=== PATIENT | male | born 1965 | race Caucasian/White ===

== ENCOUNTER 2020-07-15 21:44 | Inpatient (IN) | payer BC, SELFPAY ==
[2020-07-15] MEDS ORDERED: NA CHLORIDE 0.9% 250 ML ONE (22:34)
[2020-07-15] MEDS ORDERED: AZITHROMYCIN 500 MG INJ IVPB ONE (22:34)
[2020-07-15] MEDS ORDERED: CEFTRIAXONE/SWI 1gm 1 GM/10 ML SYR ONE (22:35)
[2020-07-15] MEDS ORDERED: NA CHLORIDE 0.9% 1,000 ML ONE (22:35)
[2020-07-15 23:11] LABS: Basophils % 0.5 % (0-1.3); Hematocrit 40.9 % (39.6-49.0); Lymphocytes % 12.7 % (15.3-44.8); RBC Red Blood Cell Count 4.52 M/uL (4.33-5.43)
[2020-07-15] MEDS ORDERED: ENOXAPARIN 80 MG/0.8 ML SQ ONE (23:13)
[2020-07-15] MEDS ORDERED: METHYLPREDNISOLONE 125 MG INJ ONE (23:13)
[2020-07-15 23:15] LABS: Protime INR 1.23
[2020-07-15 23:25] LABS: ALT/SGPT 32 U/L (12-78); AST/SGOT 45 U/L (15-37); Alkaline Phosphatase 65 U/L (45-117); Amylase 33 U/L (25-115); BUN Blood Urea Nitrogen 14 mg/dL (7-18); Bicarbonate 25 mmol/L (21-32); Bilirubin Direct 0.2 mg/dL (0-0.2); Bilirubin Total 0.6 mg/dL (0.2-1.0); CKMB Creatine Kinase MB 4.2 ng/mL (0.3-3.6); Creatine Phosphokinase 588 U/L (39-308); Glucose Level 130 mg/dL (74-106); Lipase 93 U/L (73-393); Potassium 3.8 mmol/L (3.5-5.1); Protein, Total 7.9 g/dL (6.4-8.2); Sodium Level 137 mmol/L (136-145); Troponin (Emerg Dept Use Only) < 0.02 ng/mL (0.0-0.045)
--- NOTE | 2020-07-15 23:59 | ER ---
Nurse's Notes [facility] Name: Daren Ye Age: 55 yrs Sex: Male : 1965 Arrival Date: 07/15/2020 Time: 21:47 Bed 19 Private MD: Zahida Blanca C Diagnosis: Pneumonia due to other specified infectious organisms Presentation: 07/15 20:51 Chief complaint: Patient states: Feel sick x 1 week, reports productive cough and a ca1 little bit of diarrhea. Denies fever. Denies SOB. Coronavirus screen: Client denies travel out of the [place] in the last 14 days. cough unrelated to allergies, diarrhea, Client presents with at least one sign or symptom that may indicate coronavirus-19. Standard/surgical mask placed on the client. Provider contacted for isolation considerations. Ebola Screen: Patient negative for fever greater than or equal to 101.5 degrees Fahrenheit, and additional compatible Ebola Virus Disease symptoms Patient denies exposure to infectious person. Patient denies travel to an Ebola-affected area in the 21 days before illness onset. No symptoms or risks identified at this time. Initial Sepsis Screen: Does the patient meet any 2 criteria? RR > 20 per min. HR > 90 bpm. Yes Does the patient have a suspected source of infection? Yes: Productive cough/pneumonia. Risk Assessment: Do you want to hurt yourself or someone else? Patient reports no desire to harm self or others. Onset of symptoms was July 15, 2020. 20:51 Acuity: LILIANE 2 ca1 20:51 Method Of Arrival: Ambulatory ca1 Historical: - Allergies: 22:01 No Known Allergies; ca1 - Home Meds: 22:01 metoprolol tartrate 50 mg Oral tab 1 tab 2 times per day [Active]; losartan oral oral ca1 [Active]; - PMHx: 22:01 Hypertension; High Cholesterol; ca1 - PSHx: 22:01 Cholecystectomy; ca1 - Immunization history:: Flu vaccine is not up to date. - Social history:: Smoking status: Patient denies any tobacco usage or history of. Patient/guardian denies using alcohol, street drugs, The patient lives with family. - Family history:: not pertinent. Screenin:00 Abuse screen: Denies threats or abuse. Nutritional screening: No deficits noted. jb4 Tuberculosis screening: No symptoms or risk factors identified. Fall Risk None identified. Assessment: 22:00 General: Appears in no apparent distress. comfortable, Behavior is calm, cooperative, jb4 appropriate for age, PT satting 88% on room air, placed on 2L NC. Pain: Denies pain. Neuro: Level of Consciousness is awake, alert, obeys commands, Oriented to person, place, time, situation. Cardiovascular: Patient's skin is warm and dry. Respiratory: Airway is patent Respiratory effort is even, unlabored, Respiratory pattern is regular, symmetrical, Breath sounds are clear bilaterally. GI: No deficits noted. : No deficits noted. EENT: No deficits noted. Derm: Skin is intact, Skin is pink, warm \T\ dry. Musculoskeletal: Circulation, motion, and sensation intact. Range of motion: intact in all extremities. 23:00 Reassessment: Patient appears in no apparent distress at this time. Patient and/or jb4 family updated on plan of care and expected duration. Pain level reassessed. Patient is alert, oriented x 3, equal unlabored respirations, skin warm/dry/pink. 07/16 00:00 Reassessment: Patient appears in no apparent distress at this time. Patient and/or jb4 family updated on plan of care and expected duration. Pain level reassessed. Patient is alert, oriented x 3, equal unlabored respirations, skin warm/dry/pink. 01:00 Reassessment: Patient appears in no apparent distress at this time. Patient and/or jb4 family updated on plan of care and expected duration. Pain level reassessed. Patient is alert, oriented x 3, equal unlabored respirations, skin warm/dry/pink. Vital Signs: 07/15 20:51 BP 136 / 80; Pulse 123; Resp 22 S; Temp 99.6(O); Pulse Ox 88% on R/A; Weight 163.29 kg ca1 (R); Height 5 ft. 8 in. (172.72 cm) (R); Pain 0/10; 23:00 BP 119 / 81; Pulse 104; Resp 20; Pulse Ox 91% on 2 lpm NC; jb4 07/16 00:00 BP 106 / 74; Pulse 104; Resp 24; Pulse Ox 91% on 2 lpm NC; jb4 01:00 BP 122 / 84; Pulse 96; Resp 17; Pulse Ox 92% on 2 lpm NC; jb4 07/15 20:51 Body Mass Index 54.74 (163.29 kg, 172.72 cm) ca1 ED Course: 07/15 21:47 Patient arrived in ED. am2 21:48 Zahida Blanca MD is Private Physician. am2 21:50 Wes Bay MD is Attending Physician. ma2 22:00 Triage completed. ca1 22:00 Patient has correct armband on for positive identification. Bed in low position. Call jb4 light in reach. Side rails up X 1. monitoring manager on. Pulse ox on. NIBP on. 22:01 Arm band placed on right wrist. ca1 22:09 James Rivera, BEN is Primary Nurse. jb4 22:47 Chest Single View XRAY In Process Unspecified. EDMS 23:23 Inserted saline lock: 20 gauge in right hand, using aseptic technique. Blood collected. dh4 Missed attempt(s): 20 gauge in right hand. 23:58 Zahida Blanca MD is Hospitalizing Provider. [facility] 07/16 01:00 No provider procedures requiring assistance completed. IV is patent, is intact, with 4 fluids infusing freely, without good blood return, Flushed right hand with 5 ml normal saline Patient admitted, IV remains in place. Administered Medications: 07/15 22:30 Drug: NS 0.9% 1000 ml Route: IV; Rate: 1 bolus; Site: right hand; [facility] 07/16 00:09 Follow up: Response: No adverse reaction; IV Status: Completed infusion; IV Intake: jb4 1000ml 07/15 23:04 Drug: Lovenox 80 mg Route: Sub-Q; Site: right lower abdomen; [facility] 23:30 Follow up: Response: No adverse reaction [facility] 23:05 Drug: SOLU-Medrol 125 mg Route: IVP; Site: right hand; [facility] 23:30 Follow up: Response: No adverse reaction [facility] 23:06 Drug: Rocephin 1 grams Route: IV; Rate: calculated rate; Site: right hand; [facility] 23:09 Follow up: Response: No adverse reaction; IV Status: Completed infusion; IV Intake: [id number] 23:09 Drug: AZITHromycin 500 mg Route: IVPB; Infused Over: 1 hrs; Site: right hand; [facility] 07/16 00:09 Follow up: Response: No adverse reaction; IV Status: Completed infusion; IV Intake: jb4 250ml 07/15 23:12 Not Given (Other Intervention Used): Lovenox 1 mg/kg Sub-Q once jb4 Intake: 23:09 IV: 10ml; Total: 10ml. jb4 07/16 00:09 IV: 250ml; Total: 260ml. jb4 00:09 IV: 1000ml; Total: 1260ml. jb4 Outcome: 07/15 23:58 Decision to Hospitalize by Provider. ma2 07/16 01:00 Admitted to ER Hold. Please see [facility] for further documentation. jb4 Condition: stable Discharge instructions given to patient, Instructed on the need for admit, Demonstrated understanding of instructions. 16:11 Patient left the ED. bp Signatures: Dispatcher [employer] EDMS James Rivera RN RN jb4 Marti Mcmahan Brian, RN RN Wes Harley MD MD [facility] Eufemia Mondragon RN RN [facility] Jesus Guan [facility]
--- NOTE | 2020-07-15 23:59 | EDPHYS ---
Physician Documentation [facility] Name: Daren Ye Age: 55 yrs Sex: Male : 1965 Arrival Date: 07/15/2020 Time: 21:47 Bed 19 Private MD: Zahida Blanca C ED Physician Wes Bay HPI: 07/15 23:56 This 55 yrs old Male presents to ER via Ambulatory with complaints of Cough, ma2 Congestion. 23:56 The patient or guardian reports cough, flu symptoms. Severity of symptoms: At their ma2 worst the symptoms were moderate, in the emergency department the symptoms are unchanged. Associated signs and symptoms: Pertinent negatives: ear ache, rhinorrhea, vomiting. The patient has experienced similar episodes in the past. Historical: - Allergies: 22:01 No Known Allergies; ca1 - Home Meds: 22:01 metoprolol tartrate 50 mg Oral tab 1 tab 2 times per day [Active]; losartan oral oral ca1 [Active]; - PMHx: 22:01 Hypertension; High Cholesterol; ca1 - PSHx: 22:01 Cholecystectomy; ca1 - Immunization history:: Flu vaccine is not up to date. - Social history:: Smoking status: Patient denies any tobacco usage or history of. Patient/guardian denies using alcohol, street drugs, The patient lives with family. - Family history:: not pertinent. ROS: 23:56 Constitutional: Negative for fever, chills, and weight loss. ma2 23:56 All other systems are negative. Exam: 23:56 Constitutional: This is a well developed, well nourished patient who is awake, alert, ma2 and in no acute distress. Head/Face: Normocephalic, atraumatic. Eyes: Pupils equal round and reactive to light, extra-ocular motions intact. Lids and lashes normal. Conjunctiva and sclera are non-icteric and not injected. Cornea within normal limits. Periorbital areas with no swelling, redness, or edema. ENT: Nares patent. No nasal discharge, no septal abnormalities noted. Tympanic membranes are normal and external auditory canals are clear. Oropharynx with no redness, swelling, or masses, exudates, or evidence of obstruction, uvula midline. Mucous membranes moist. Neck: Trachea midline, no thyromegaly or masses palpated, and no cervical lymphadenopathy. Supple, full range of motion without nuchal rigidity, or vertebral point tenderness. No Meningismus. Chest/axilla: Normal chest wall appearance and motion. Nontender with no deformity. No lesions are appreciated. Cardiovascular: Regular rate and rhythm with a normal S1 and S2. No gallops, murmurs, or rubs. Normal PMI, no JVD. No pulse deficits. Abdomen/GI: Soft, non-tender, with normal bowel sounds. No distension or tympany. No guarding or rebound. No evidence of tenderness throughout. Back: No spinal tenderness. No costovertebral tenderness. Full range of motion. MS/ Extremity: Pulses equal, no cyanosis. Neurovascular intact. Full, normal range of motion. Neuro: Awake and alert, GCS 15, oriented to person, place, time, and situation. Cranial nerves II-XII grossly intact. Motor strength 5/5 in all extremities. Sensory grossly intact. Cerebellar exam normal. Normal gait. 23:56 Respiratory: mild respiratory distress is noted, Respirations: Breath sounds: rales, that are moderate, are located in both bases. Vital Signs: 20:51 BP 136 / 80; Pulse 123; Resp 22 S; Temp 99.6(O); Pulse Ox 88% on R/A; Weight 163.29 kg ca1 (R); Height 5 ft. 8 in. (172.72 cm) (R); Pain 0/10; 23:00 BP 119 / 81; Pulse 104; Resp 20; Pulse Ox 91% on 2 lpm NC; jb4 07/16 00:00 BP 106 / 74; Pulse 104; Resp 24; Pulse Ox 91% on 2 lpm NC; jb4 01:00 BP 122 / 84; Pulse 96; Resp 17; Pulse Ox 92% on 2 lpm NC; jb4 07/15 20:51 Body Mass Index 54.74 (163.29 kg, 172.72 cm) ca1 MDM: 07/15 21:50 Patient medically screened. ma2 22:21 ED course: Dr Blanca called and requested pt be started on zithromax, lovenox, steroids, kb neb treatments and oxygen on admission. . 23:56 Differential Diagnosis: Bronchitis Influenza Upper Respiratory Infection Sinusitis. ma2 Data reviewed: vital signs, nurses notes. Counseling: I had a detailed discussion with the patient and/or guardian regarding: the historical points, exam findings, and any diagnostic results supporting the discharge/admit diagnosis, the presence of at least one elevated blood pressure reading (>120/80) during this emergency department visit, the need for further work-up and treatment in the hospital. Response to treatment: the patient's symptoms have markedly improved after treatment. 07/15 21:59 Order name: Amylase, Serum; Complete Time: 23:28 la07/15 21:59 Order name: Basic Metabolic Panel; Complete Time: 23:28 la07/15 21:59 Order name: Blood Culture Adult (2) 07/15 21:59 Order name: CBC with Diff; Complete Time: 23:28 la07/15 21:59 Order name: Ckmb; Complete Time: 23:28 07/15 21:59 Order name: CPK; Complete Time: 23:28 la07/15 21:59 Order name: Lactate; Complete Time: 23:28 la07/15 21:59 Order name: LFT's; Complete Time: 23:28 la07/15 21:59 Order name: Lipase; Complete Time: 23:28 la07/15 21:59 Order name: Procalcitonin; Complete Time: 00:00 la07/15 21:59 Order name: Protime (+inr); Complete Time: 23:28 07/15 21:59 Order name: Ptt, Activated; Complete Time: 23:28 07/15 21:59 Order name: Troponin (emerg Dept Use Only); Complete Time: 23:28 la07/15 21:59 Order name: Urine Microscopic Only la07/15 21:59 Order name: Chest Single View XRAY la07/15 21:59 Order name: Strep; Complete Time: 00:00 la07/15 23:59 Order name: Throat Culture EDRI 07/16 00:03 Order name: COVID-19/FLU A+B; Complete Time: 06:20 EDMS 07/16 05:40 Order name: CBC with Automated Diff 07/16 06:00 Order name: D-Dimer; Complete Time: 06:20 EDMS 07/16 06:04 Order name: Basic Metabolic Panel; Complete Time: 06:20 EDMS 07/16 06:04 Order name: C-Reactive Protein; Complete Time: 06:20 EDMS 07/16 06:04 Order name: Magnesium; Complete Time: 06:20 EDMS 07/16 06:04 Order name: Ferritin; Complete Time: 06:20 EDMS 07/16 08:08 Order name: CBC Smear Scan EDMS 07/15 21:59 Order name: Accucheck; Complete Time: 00:39 ma2 07/15 21:59 Order name: Cardiac monitoring; Complete Time: 22:53 07/15 21:59 Order name: EKG - Nurse/Tech; Complete Time: 00:39 07/15 21:59 Order name: IV Saline Lock - Large Bore; Complete Time: 22:53 2 07/15 21:59 Order name: Labs collected and sent; Complete Time: 22:53 07/15 21:59 Order name: O2 Per Protocol; Complete Time: 22:10 07/15 21:59 Order name: O2 Sat Monitoring; Complete Time: 22:10 07/15 21:59 Order name: Document PUI#; Complete Time: 22:15 07/15 21:59 Order name: Droplet/Contact Precautions; Complete Time: 22:15 07/15 21:59 Order name: Notify Health Dept [id number]/ ; Complete Time: 22:16 ma2 Administered Medications: 22:30 Drug: NS 0.9% 1000 ml Route: IV; Rate: 1 bolus; Site: right hand; 07/16 00:09 Follow up: Response: No adverse reaction; IV Status: Completed infusion; IV Intake: jb4 1000ml 07/15 23:04 Drug: Lovenox 80 mg Route: Sub-Q; Site: right lower abdomen; jb4 23:30 Follow up: Response: No adverse reaction 4 23:05 Drug: SOLU-Medrol 125 mg Route: IVP; Site: right hand; jb4 23:30 Follow up: Response: No adverse reaction 4 23:06 Drug: Rocephin 1 grams Route: IV; Rate: calculated rate; Site: right hand; jb4 23:09 Follow up: Response: No adverse reaction; IV Status: Completed infusion; IV Intake: [id number] 23:09 Drug: AZITHromycin 500 mg Route: IVPB; Infused Over: 1 hrs; Site: right hand; jb4 07/16 00:09 Follow up: Response: No adverse reaction; IV Status: Completed infusion; IV Intake: jb4 250ml 07/15 23:12 Not Given (Other Intervention Used): Lovenox 1 mg/kg Sub-Q once jb4 Disposition: 23:58 Co-signature as Attending Physician, Wes Bay MD. [facility] Disposition: 07/15/20 23:58 Hospitalization ordered by Zahida Blanca for Inpatient Admission. Preliminary diagnosis is Pneumonia due to other specified infectious organisms. - Bed requested for Telemetry/MedSurg (Inpatient). - Status is Inpatient Admission. bp - Condition is Stable. - Problem is new. - Symptoms are unchanged. Signatures: Dispatcher [employer] EDRI Grace Lopez, HARLEY-C ROTARY PEEL OVEN TENDER-Marti Saravia RN Arlene Baugh RN RN James Adams, RN BEN jbBhavik Mccracken RN Wes Ferraro MD MD ma2 Acob, Cheryl RN RN ca1 Corrections: (The following items were deleted from the chart) 23:01 22:01 CORONAVIRUS+MR.LAB.BRZ ordered. EDRI EDMS 23:01 22:01 Influenza Screen (A \T\ B)+BA.LAB.BRZ ordered. [facility] EDRI 07/16 00:06 07/15 23:58 Hospitalization Ordered by A Rianna AYALA for Inpatient Admission. Preliminary mw diagnosis is Pneumonia due to other specified infectious organisms. Bed requested for Telemetry/MedSurg (Inpatient). Status is Inpatient Admission. Condition is Stable. Problem is new. Symptoms are unchanged. ma2 07/16 15:07 00:06 07/15/2020 23:58 Hospitalization Ordered by A Rianna AYALA for Inpatient Admission. dw Preliminary diagnosis is Pneumonia due to other specified infectious organisms. Bed requested for [facility] ER HOLD. Status is Inpatient Admission. Condition is Stable. Problem is new. Symptoms are unchanged. mw 16:11 15:07 07/15/2020 23:58 Hospitalization Ordered by A Rianna AYALA for Inpatient Admission. bp Preliminary diagnosis is Pneumonia due to other specified infectious organisms. Bed requested for Telemetry/MedSurg (Inpatient). Status is Inpatient Admission. Condition is Stable. Problem is new. Symptoms are unchanged. dw
[2020-07-16 00:02] LABS: SARS-COV-2 RT PCR POSITIVE (NEGATIVE)
[2020-07-16] MEDS ORDERED: ONDANSETRON 4 MG/2 ML VIAL IV PRN (01:44)
[2020-07-16] MEDS ORDERED: BENZONATATE 100 MG CAP PO PRN (01:44)
[2020-07-16] MEDS ORDERED: ACETAMINOPHEN 500 MG TAB PO PRN (01:44)
[2020-07-16 02:49] VITALS: BMI 54.7
[2020-07-16 05:37] LABS: Absolute Lymphocytes (CBC) 0.4 K/uL (0.7-4.9); Basophils % 0.4 % (0-1.3); Hematocrit 40.3 % (39.6-49.0); Lymphocytes % 7.8 % (15.3-44.8); MPV 8.5 fL (7.6-11.3); RBC Red Blood Cell Count 4.49 M/uL (4.33-5.43)
[2020-07-16 06:04] LABS: Ferritin 622.7 ng/mL (26-388); Magnesium 2.3 mg/dL (1.8-2.4)
[2020-07-16] MEDS ORDERED: INFLUENZA VACCINE (for 3y+) 0.5 ML DOSE IMVAC ONE ×2 (08:00→08:42)
--- NOTE | 2020-07-16 08:06 | RAD REPORT ---
EXAM DESCRIPTION: Lydia Single View07/15/2020 10:46 pm CLINICAL HISTORY: Congestion COMPARISON: none FINDINGS: Moderate patchy bilateral pulmonary opacities. Heart is borderline enlarged IMPRESSION: Moderate bilateral patchy lung opacities probably pneumonia
[2020-07-16 08:07] LABS: Blood Morphology Comment NOT SEEN (NOT SEEN); Platelet Estimate ADEQ; White Blood Cell Scan OK (OK)
[2020-07-16] MEDS: ASCORBIC ACID 500 MG TABLET PO SCH ×4 (08:32→21:22)
[2020-07-16] MEDS ORDERED: VITAMIN D 1000 UNIT TAB ONE (08:40)
[2020-07-16] MEDS ORDERED: ZINC SULFATE 220 MG CAP ONE (08:40)
[2020-07-16] MEDS ORDERED: THIAMINE HCL 100 MG TABLET ONE ×2 (08:40→09:08)
[2020-07-16] MEDS ORDERED: ENOXAPARIN 80 MG/0.8 ML SQ ONE (08:41)
[2020-07-16] MEDS ORDERED: METHYLPREDNISOLONE 40 MG INJ ONE (08:41)
--- NOTE | 2020-07-16 08:44 | P.CNS ---
Date of Consult: 07/16/20 Reason for Consult: Respiratory failure from patel virus Chief Complaint: Shortness of breath History of Present Illness: Patient is 55 years of age was diagnosed with patel virus about a week ago admitted to the hospital with worsening dyspnea was found to be hypoxic respiratory failure is currently doing better on nasal cannula oxygen patient is obese Allergies No Known Allergies Allergy (Unverified 07/16/20 01:33) Home Medications: Atorvastatin Calcium 40 mg PO BEDTIME 07/16/20 Esomeprazole Magnesium 40 mg PO DAILY 07/16/20 Metoprolol Succinate [Toprol Xl*] 50 mg PO BID 07/16/20 - Past Medical/Surgical History Diabetic: No -: Hyper tension -: High Cholesterol -: Alena - Family History Father Medical History: Heart disease, Hypertension, Kidney disease, Other (see notes) Notes: Lung Cancer Mother Medical History: Heart disease Sister Medical History: Other (see notes) Notes: MS. González Matt (sister): Hypertension - Social History Alcohol use: Yes CD- Drugs: No Caffeine use: Yes Place of Residence: Home Review of Systems 10-point ROS is otherwise unremarkable Physical Examination Temp Pulse Resp BP Pulse Ox 97.1 F 87 17 125/75 93 07/16/20 04:00 07/16/20 04:00 07/16/20 04:00 07/16/20 04:00 07/16/20 04:00 Laboratory Data (last 24 hrs) 07/15/20 22:48: PT 14.4 H, INR 1.23, APTT 28.6 07/15/20 22:48: WBC 7.7, Hgb 13.2 L, Hct 40.9, Plt Count 211 07/15/20 22:48: Sodium 137, Potassium 3.8, BUN 14, Creatinine 1.11, Glucose 130 H, Total Bilirubin 0.6, AST 45 H, ALT 32, Alkaline Phosphatase 65, Amylase 33, Lipase 93 - Problems (1) 2019 novel coronavirus disease (COVID-19) Current Visit: Yes Status: Acute Plan: Patient is 55 years of age admitted with respiratory failure from patel virus he is currently doing better continue with steroids multi vitamin supplementation will plan to set him up for home O2 4 L a min will check if is stable for discharge 1 dose of ivermectin/ Rmdesmi
[2020-07-16] MEDS: ENOXAPARIN 80 MG/0.8 ML SQ SCH ×2 (08:58→21:00)
[2020-07-16] MEDS: VITAMIN D 1000 UNIT TAB PO SCH (08:59)
[2020-07-16] MEDS: ZINC SULFATE 220 MG CAP PO SCH (08:59)
[2020-07-16] MEDS: THIAMINE 200 MG/2 ML INJ IVP SCH ×2 (08:59→21:22)
[2020-07-16] MEDS ORDERED: METHYLPREDNISOLONE 40 MG INJ IV SCH (09:00)
--- NOTE | 2020-07-16 17:15 | EKG ---
Test Date: 2020-07-15 Test Time: 23:14:03 Electricity Trader: DILLON MEASUREMENT RESULTS: Intervals: Rate: 100 MI: 136 QRSD: 88 QT: 350 QTc: 451 [place]: P: 52 MI: 136 QRS: 24 T: 7 INTERPRETIVE STATEMENTS: Normal sinus rhythm ST abnormality, possible digitalis effect Abnormal ECG No previous ECG available for comparison Electronically Signed On 07-16-20 17:12:54 WORKERS COMPENSATION ADMINISTRATOR by Omkar Valenzuela
[2020-07-16] MEDS ORDERED: IVERMECTIN 3 MG TABS PO ONE (18:00)
[2020-07-16] MEDS ORDERED: Remdesivir 200 MG in NA CHLORIDE 0.9% 250 ML IV ONE (18:00)
[2020-07-16] MEDS: METHYLPREDNISOLONE 125 MG INJ IV SCH (21:22)
--- NOTE | 2020-07-16 22:40 | HP ---
Date of Admission: 07/16/2020 Chief Complaint: Cough, congestion, shortness of breath. History Of Present Illness: Mr. Ye is a very pleasant 55-year-old male patient who started to h ave some cough, congestion about a week ago, and was coughing up some yellowish-colored mucus from ti me to time. Yesterday, he started to have some shortness of breath and his oxygen saturation at home was between 84% to 86%. The patient was visited via tele visit yesterday, and after talking to him, he was advised to come to emergency room as I was concerned about COVID-19 related illness. After kai boyd was evaluated in the emergency room, he was admitted to the hospital with COVID-19 infection and CO VID-19 pneumonia. When I saw him this morning, he was in the emergency room. Allergies: NO KNOWN ALLERGIES. Medications: Atorvastatin 20 mg daily in the evening, Nexium 40 mg p.o. daily, and Toprol-XL 50 mg p .o. 2 times a day. Allergies: NO KNOWN ALLERGIES. Review of Systems: Respiratory: As mentioned above. Constitutional: As mentioned above. All other systems reviewed and negative. Past Medical History: Significant for hypertension, hyperlipidemia, gastroesophageal reflux disease, impaired fasting glucose, obstructive sleep apnea, and gout. Impaired fasting glucose, hypertension , mixed hyperlipidemia, leg edema, obstructive sleep apnea, gastroesophageal reflux disease. Family History: Father had coronary artery disease, diabetes. Mother had dementia and hypertension. Sister with hypertension and multiple sclerosis. Past Surgical History: Cholecystectomy. Social History: Positive for smoking. Use of alcohol. Occasionally uses beer. Physical Examination: GENERAL: This morning when I saw him, he was not in distress. Awake, alert, oriented x3. VITAL SIGNS: Height 5 feet 8 inches, weight 360 pounds, temperature 97.1, pulse 87, respiratory rate 17, blood pressure 125/75, oxygen saturation 93% on 2 L nasal cannula oxygen. HEENT: Head atraumatic, normocephalic. Conjunctivae nonerythematous. Sclerae white. Mouth, no thr ush or edema noted. Ears/Nose, no mass, lesion, discharge noted. Neck: Supple. No JVD, lymph nodes, bruit, thyromegaly noted. Lungs: Bilateral good equal air entry. Clear to auscultation. No rhonchi. No rales. Heart: Normal heart sounds, no murmur or gallop. Abdomen: Soft, bowel sounds normal. No guarding, rigidity, tenderness, mass, hepatosplenomegaly, dis tention, or bruit noted. Extremities: No leg edema. No calf tenderness. Skin: No rash, ulcer, cellulitis. Lymphatics: No lymph node enlargement in neck, supraclavicular, infraclavicular region. Neuro: No focal neurological deficit. Chest: Unremarkable. External Genitalia: Deferred. Rectal: Deferred. Laboratory Data: White count 7.7, hemoglobin 13.2, platelets 211. This was last night. This mornin g, white count 5.7, hemoglobin 13.5, platelets 201. D-dimer 606. INR 1.23. Last night sodium 137, potassium 3.8, chloride 104, bicarb 25, BUN 14, creatinine 1.11, glucose 130, SGOT 45. CPK 588. Tro ponin less than 0.02. CRP 132. Procalcitonin less than 0.05. COVID-19 test positive. Chest x-ray; moderate bilateral patchy lung opacity, probably pneumonia. Impression: 1.COVID-19 infection. 2.COVID-19 pneumonia. 3.Hypertension. 4.Mixed hyperlipidemia. 5.Gastroesophageal reflux disease. 6.Impaired fasting glucose. 7.Obstructive sleep apnea. 8.Gout. Plan: Admit the patient to hospital for further evaluation and management of this problem. The thom ent is appropriate for inpatient and is expected to spend 2 midnights in the hospital. Home medicati ons will be continued per order and we will consult Dr. Barrera. The patient will be started on rem desivir, ivermectin, IV steroid, oxygen supplement therapy, and we will see him tomorrow for followup . We will also start him on DVT prophylaxis. ADY/MODL Voice ID: [id number]
[2020-07-17] MEDS ORDERED: PANTOPRAZOLE 40MG TABLET PO SCH (06:30)
[2020-07-17 08:45] LABS: Bilirubin Direct 0.1 mg/dL (0-0.2); Bilirubin Total 0.3 mg/dL (0.2-1.0); C-Reactive Protein 70.2 mg/L (<3.00); Ferritin 651.2 ng/mL (26-388); Protein, Total 8.1 g/dL (6.4-8.2)
--- NOTE | 2020-07-17 08:48 | RAD REPORT ---
EXAM DESCRIPTION: Lydia Single View07/17/2020 8:39 am CLINICAL HISTORY: Pneumonia COMPARISON: July 15 FINDINGS: Minimal improvement in the bilateral pulmonary opacities. Heart is borderline enlarged IMPRESSION: Minimal improvement in the bilateral pneumonia
[2020-07-17] MEDS: ASCORBIC ACID 500 MG TABLET PO SCH ×3 (08:53→17:10)
[2020-07-17] MEDS: ZINC SULFATE 220 MG CAP PO SCH (08:54)
[2020-07-17] MEDS: ENOXAPARIN 80 MG/0.8 ML SQ SCH (08:54)
[2020-07-17] MEDS: VITAMIN D 1000 UNIT TAB PO SCH (08:54)
[2020-07-17] MEDS: METHYLPREDNISOLONE 125 MG INJ IV SCH (08:54)
[2020-07-17] MEDS ORDERED: METOPROLOL XL 50 MG TAB PO SCH (09:00)
[2020-07-17] MEDS ORDERED: Remdesivir 100 MG in NA CHLORIDE 0.9% 250 ML IV SCH (09:00)
[2020-07-17] MEDS: THIAMINE 200 MG/2 ML INJ IVP SCH (09:27)
[2020-07-17 12:34] VITALS: O2SAT 93
[2020-07-17 18:00] VITALS: BP 145/70; TEMP 97.7
[2020-07-17] MEDS ORDERED: ATORVASTATIN 40 MG TAB PO SCH (21:00)
--- NOTE | 2020-07-18 06:49 | DS ---
Date of Discharge: 07/17/2020 Disposition: Discharged to go home. Physical Examination: HEENT: Unremarkable. Lungs: Clear to auscultation. Heart: Sounds normal. Abdomen: Soft. Bowel sounds normal. No guarding, rigidity, tenderness, or distention. Extremities: No edema. Laboratory Data: Upon admission; sodium 137, potassium 3.8, chloride 104, bicarb 25, BUN 14, creatinine 1.11, glucose 130. Liver function tests unremarkable except SGOT 45, SGPT was normal at 32, alkaline phosphatase at 65. CPK 588, troponin less than 0.02. His CRP 132, which was on 07/16/2020. Procalcitonin less than 0.05. Last chest x-ray today on day of discharge shows mild improvement in lung findings. Discharge Diagnoses: 1. COVID-19 infection. 2. COVID-19 pneumonia. 3. Acute respiratory failure with hypoxia. 4. Hypertension. 5. Mixed hyperlipidemia. Hospital Course: This is a 55-year-old male patient, who was admitted to the hospital with COVID-19 pneumonia. Please see dictated H and P for more information. The patient was evaluated in the ER. He was admitted to the hospital. He remained on COVID floor, did not require any ICU care. He remained on oxygen 3 to 4 L/minute per nasal cannula, maintaining adequate oxygenation. He has a good appetite, not in any respiratory distress. Denies any complaints of shortness of breath. Dr. Barrera from Pulmonary was consulted. The patient did receive remdesivir and also received his first dose of ivermectin while in the hospital. His overall condition improved. His symptoms are better. He feels better and Dr. Barrera has released him to go home. From his point of view, medically stable for discharge and today, Dr. Barrera was able to make arrangements for him to go home with home oxygen. The patient desperately wanted to go home since he is feeling good all arrangements have been completed. He received IV steroid while in the hospital and will continue oral prednisone on outpatient basis. Discharge Medications And Instructions: 1. Continue all prior home medications. 2. Use oxygen at 4 L/minute nasal cannula all the time. 3. Follow up with Dr. Blanca via tele visit next week and the patient to call for appointment. 4. Prednisone 10 mg tablet. The patient is to take 2 tablets by mouth 2 times a day for 1 week, then 2 tablets by mouth daily for 1 week, then 1 tablet by mouth daily for 1 week, then half a tablet by mouth daily for 1 week. 5. Ivermectin 1 dose to be taken on 07/18/2020 and repeat dose to be taken on Wednesday which is 07/21/2020, and on basis of his weight, we will calculate the dose and send prescription to his pharmacy. ADY/CHULA Voice ID: [id number] Report ID: [id number]
[2020-07-19] MEDS ORDERED: IVERMECTIN 3 MG TABS PO ONE (09:00)
== END 2020-07-17 19:30 | disposition home or self-care (01) | DRG 177 ==
LOC: ER 21:44 → ERHOLD 07-16 01:39 → 4TH 07-16 15:50
PROVIDERS: ADMIT Internal Medicine; ATTEND Internal Medicine
PROC: XW033E5 Introduction of Remdesivir Anti-infective into Peripheral Vein, Percutaneous Approach, New Technology Group 5 (ICD-10-PCS; principal; 2020-07-16)
DX: U07.1 COVID-19 (principal); J12.82 Pneumonia due to coronavirus disease 2019; J96.01 Acute respiratory failure with hypoxia; I10 Essential (primary) hypertension; K21.9 Gastro-esophageal reflux disease without esophagitis; E78.2 Mixed hyperlipidemia; G47.33 Obstructive sleep apnea (adult) (pediatric); M10.9 Gout, unspecified; R73.01 Impaired fasting glucose; Z79.899 Other long term (current) drug therapy; Z90.49 Acquired absence of other specified parts of digestive tract; Z23 Encounter for immunization
CPT/HCPCS: 0240U; 36415; 71045; 80048; 80076; 82150; 82550; 82553; 82565; 82728; 83605; 83690; 83735; 84145; 84484; 85025; 85379; 85610; 85730; 86140; 87040; 87070; 87081; 90471; 93005; 96361; 96365; 96372; 96375; 99285; J0456; J0696; J2920; J2930; J3411; J7030; J7050; Q2035